=== PATIENT | male | born 1975 | race Caucasian/White ===

== ENCOUNTER 2018-06-30 14:38 | Emergency (ER) | payer OTHER ==
[2018-06-30] MEDS: NS 1,000 ML IV (16:00)
[2018-06-30] MEDS: CLINDAMYCIN 600 MG in APPROPRIATE DILUENT 1 EA IV (16:00)
== END 2018-06-30 17:42 | disposition home or self-care (01) ==
LOC: M ED 14:38
DX: J36 Peritonsillar abscess (principal)
CPT/HCPCS: 87205